=== PATIENT | female | born 1965 | race African-American/Black ===

== ENCOUNTER 2018-08-08 08:35 | Inpatient (IN) | payer MEDICARE, OTHER ==
[~2018-08-08] VITALS: Ht 177.8 cm; Wt 85.7 kg
[~2018-08-08 08:35] MED LIST: IBUP-1649 PO; SIMV10TA2 PO
[2018-08-08] MEDS ORDERED: KETOROLAC 15MG/ML VIAL IV ONE (09:15)
[2018-08-08] MEDS ORDERED: ASPIRIN 325MG EC TABLET PO ONE (09:15)
[2018-08-08 09:36] LABS: BASOPHILS % 1.1 % (0.0-2.0); HEMATOCRIT. 38.9 % (36.0-48.0); HEMOGLOBIN. 13.4 g/dL (12.0-16.0); LYMPHOCYTES % 30.5 % (20.0-50.0); MEAN CORPUSCULAR HEMOGLOBIN 31.4 pg (28.0-32.0); MEAN CORPUSCULAR VOLUME 91.5 fL (81.0-99.0); MEAN PLATELET VOLUME 9.3 fl (7.4-10.4); MONOCYTES % 4.9 % (2.0-8.0); NEUTROPHILS % 61.5 % (40.0-76.0); PLATELET 280 x1000/uL (130-400); RED BLOOD CELL COUNT 4.26 mill/uL (4.2-5.4); RED CELL DISTRIBUTION WIDTH 13.8 % (11.6-14.6)
[2018-08-08 09:39] LABS: CHLORIDE 103 mEq/L (98-107)
[2018-08-08] MEDS ORDERED: IPRATROPIUM/ALBUTEROL 0.5-3(2.5)MG/3ML NEB INH PRN (11:45)
[2018-08-08] MEDS ORDERED: NITROGLYCERIN 0.4MG TABLET SL SL PRN (11:45)
[2018-08-08] MEDS ORDERED: KETOROLAC 15MG/ML VIAL IV PRN (11:45)
[2018-08-08] MEDS ORDERED: ACETAMINOPHEN 325MG TABLET PO PRN (11:45)
[2018-08-08] MEDS ORDERED: ONDANSETRON HCL 4MG/2ML INJ IV PRN (11:45)
[2018-08-08] MEDS ORDERED: NA PHOS,M-B/NA PHOS,DI-BA ENEMA 118ML PR PRN (11:45)
[2018-08-08] MEDS ORDERED: DOCUSATE SODIUM 100MG CAPSULE PO PRN (11:45)
[2018-08-08] MEDS ORDERED: CLONIDINE 0.1MG TABLET PO PRN (11:45)
[2018-08-08] MEDS ORDERED: MAGNESIUM/ALUMINUM HYDROXIDE/SIMETHICONE 30ML UDC PO PRN (11:45)
[2018-08-08] MEDS ORDERED: LORAZEPAM 0.5MG TABLET PO PRN (11:45)
[2018-08-08] MEDS ORDERED: DIPHENHYDRAMINE 50MG/ML VIAL IV PRN (11:45)
[2018-08-08] MEDS ORDERED: GUAIFENESIN 200MG/10ML SUGAR FREE UDC PO PRN (11:45)
[2018-08-08 13:45] VITALS: BP 133/75
[2018-08-08 14:00] VITALS: BP 133/75
[2018-08-08] MEDS: ENOXAPARIN 40MG/0.4ML SYR SUBCUT SCH (14:21)
[2018-08-08] MEDS ORDERED: FLUV40CA PO (14:37)
[2018-08-08] MEDS ORDERED: IBUP-2030 PO (14:37)
[2018-08-08 16:27] LABS: CREATINE KINASE 88 IU/L (26-192)
[2018-08-08 16:28] LABS: CREATINE KINASE MB FRACTION < 1.0 ng/mL (0.5-3.6)
[2018-08-08 20:00] VITALS: BP 149/60
[2018-08-08 20:17] LABS: *AMPHETAMINES SCREEN URINE NEGATIVE (NEGATIVE); *BARBITURATES SCREEN URINE NEGATIVE (NEGATIVE); *BENZODIAZEPINES SCREEN URINE NEGATIVE (NEGATIVE)
[2018-08-08 20:18] LABS: *COCAINE SCREEN URINE NEGATIVE (NEGATIVE); CANNABINOID URINE SCREEN NEGATIVE (NEGATIVE); METHADONE URINE SCREEN NEGATIVE (NEGATIVE); OPIATES URINE SCREEN NEGATIVE (NEGATIVE); PHENCYCLIDINE URINE SCREEN NEGATIVE (NEGATIVE)
[2018-08-08] MEDS ORDERED: ZOLPIDEM TARTRATE 5MG TABLET PO PRN (21:00)
[2018-08-08] MEDS: METOPROLOL TARTRATE 25MG TABLET PO SCH (22:01)
[2018-08-08] MEDS: FAMOTIDINE 20MG TABLET PO SCH (22:01)
[2018-08-08] MEDS: TRAMADOL 50MG TABLET PO PRN (22:07)
[2018-08-08 23:55] VITALS: BP 131/66
[2018-08-09 00:31] LABS: CREATINE KINASE 88 IU/L (26-192)
[2018-08-09 00:32] LABS: CREATINE KINASE MB FRACTION < 1.0 ng/mL (0.5-3.6)
[2018-08-09 04:00] VITALS: BP 107/56
[2018-08-09] MEDS: TRAMADOL 50MG TABLET PO PRN (06:54)
[2018-08-09 08:00] VITALS: BP 108/49
[2018-08-09] MEDS: METOPROLOL TARTRATE 25MG TABLET PO SCH ×2 (09:00→21:04)
[2018-08-09] MEDS: FAMOTIDINE 20MG TABLET PO SCH ×2 (09:09→21:04)
[2018-08-09] MEDS: ASPIRIN 325MG EC TABLET PO SCH (09:09)
[2018-08-09] MEDS ORDERED: REGADENOSON 0.4 MG/5 ML IV NR (11:00)
[2018-08-09 12:00] VITALS: BP 116/65
[2018-08-09] MEDS ORDERED: REGADENOSON 0.4 MG/5 ML IV ONE (12:34)
[2018-08-09] MEDS: ENOXAPARIN 40MG/0.4ML SYR SUBCUT SCH (14:58)
[2018-08-09 16:00] VITALS: BP 115/72
[2018-08-09 20:00] VITALS: BP 143/75
[2018-08-10] VITALS: BP 115/50
[2018-08-10 04:00] VITALS: BP 114/61
[2018-08-10 07:30] VITALS: BP 101/68
[2018-08-10] MEDS: METOPROLOL TARTRATE 25MG TABLET PO SCH (08:19)
[2018-08-10] MEDS: ASPIRIN 325MG EC TABLET PO SCH (08:30)
[2018-08-10] MEDS: TRAMADOL 50MG TABLET PO PRN (08:30)
[2018-08-10] MEDS: FAMOTIDINE 20MG TABLET PO SCH (08:31)
[2018-08-10 10:19] VITALS: BP 101/68
[2018-08-10] MEDS ORDERED: SUCR1TAB30 PO (10:22)
[2018-08-10] MEDS ORDERED: PROT40 PO (10:22)
== END 2018-08-10 10:51 | disposition home or self-care (01) | DRG 392 ==
LOC: ER 08:35 → 8WST 11:10 → EDBEDREQTM 11:16 → EDBEDREQ 11:16 → SUPCPDRO 11:41 → ENRESERV 13:00
PROVIDERS: ADMIT Internal Medicine; ATTEND Internal Medicine
DX: K21.9 Gastro-esophageal reflux disease without esophagitis (principal); E78.00 Pure hypercholesterolemia, unspecified; I10 Essential (primary) hypertension; I45.10 Unspecified right bundle-branch block; J45.909 Unspecified asthma, uncomplicated; Z82.49 Family history of ischemic heart disease and other diseases of the circulatory system; Z87.891 Personal history of nicotine dependence; Z88.0 Allergy status to penicillin; Z88.5 Allergy status to narcotic agent; Z79.899 Other long term (current) drug therapy
CPT/HCPCS: 36415; 71045; 78452; 80053; 80061; 80305; 82550; 82553; 83036; 83880; 84484; 85025; 93005; 93017; 93306; 93970; 96372; 96374; 99285; A9500; J1650; J1885; J2785

== ENCOUNTER 2020-01-30 12:01 | Emergency (ER) | payer MEDICARE ==
[~2020-01-30] VITALS: Ht 177.8 cm; Wt 90.0 kg
[~2020-01-30 12:01] MED LIST changes: +FLUV40CA PO; -IBUP-1649 PO; +IBUP-2030 PO; +PROT40 PO; -SIMV10TA2 PO; +SUCR1TAB30 PO
[2020-01-30] MEDS ORDERED: IPRATROPIUM BROMIDE (0.02%) 0.5MG/2.5ML NEB HHN STA (13:31)
[2020-01-30] MEDS ORDERED: ALBUTEROL (0.083%) 2.5MG/3ML NEB HHN STA (13:31)
[2020-01-30] MEDS ORDERED: PREDNISONE 20MG TABLET PO STA (13:31)
[2020-01-30 14:43] VITALS: BP 148/98
== END 2020-01-30 14:43 | disposition home or self-care (01) ==
LOC: ER 12:01
DX: J45.901 Unspecified asthma with (acute) exacerbation (principal); E78.00 Pure hypercholesterolemia, unspecified; I25.10 Atherosclerotic heart disease of native coronary artery without angina pectoris; Z88.0 Allergy status to penicillin; Z79.899 Other long term (current) drug therapy; Z88.5 Allergy status to narcotic agent; Z98.890 Other specified postprocedural states
CPT/HCPCS: 71045; 94640; 99283; J7512